=== PATIENT | female | born 1930 | race Caucasian/White ===

== ENCOUNTER 2016-11-17 10:39 | Inpatient (IN) | payer MEDICARE, OTHER ==
--- NOTE | 2016-11-17 11:06 | ED.PDOC ---
History of Present Illness - General Chief Complaint: Respiratory Problem Stated Complaint: Increased difficulty breathing x 4 days Time Seen by Provider: 11/17/16 11:02 Source: patient, RN notes reviewed, family Exam Limitations: no limitations - History of Present Illness Initial Comments: She stated that she has history of copd using hand held nebulizer and MDI at home and 4 days ago has worsening sob and bilateral leg swelling denies chest pain. Timing/Duration: other - 4 days ago Severity: moderate Improving Factors: nothing Worsening Factors: nothing Associated Symptoms: denies symptoms Allergies/Adverse Reactions: Allergies Allopurinol Allergy (Verified 10/02/15 09:16) Other Swelling, loses hair Colchicine Allergy (Verified 10/02/15 09:16) Other swelling, loses hair Gabapentin [From Neurontin] Allergy (Verified 10/02/15 09:16) Unknown Hydrochlorothiazide w/Triamterene [From Maxzide] Allergy (Verified 10/02/15 09: 16) Unknown Metoprolol [From Toprol XL] Allergy (Verified 10/02/15 09:16) Unknown Probenecid Allergy (Verified 10/02/15 09:16) Other swelling, loses hair Triamterene Allergy (Verified 10/02/15 09:16) Unknown Home Medications: Ambulatory Orders Cetirizine HCl 10 mg PO DAILY 10/02/15 Cholecalciferol [Vitamin D3] 1,000 unit PO DAILY 10/02/15 Cyclobenzaprine HCl 10 mg PO TID PRN 10/02/15 Febuxostat [Uloric] 40 mg PO DAILY 10/02/15 Furosemide [Lasix] 40 mg PO DAILY 10/02/15 [place]-3 Fatty Acids [[place] 3] 1 cap PO DAILY 10/02/15 Pregabalin [Lyrica] 100 mg PO BID 10/02/15 Sitagliptin Phosphate [Januvia] 25 mg PO DAILY 10/02/15 Tramadol HCl [Ultram] 50 mg PO BID PRN 10/02/15 amLODIPine BESYLATE [Norvasc] 10 mg PO DAILY 10/02/15 Ascorbic Acid [Vitamin C] 500 mg PO DAILY 11/17/16 Levothyroxine Sodium 50 mcg PO DAILY 11/17/16 Review of Systems - Review of Systems Constitutional: States: no symptoms reported EENTM: States: no symptoms reported Respiratory: States: see HPI, short of breath Cardiology: States: other - leg edema Gastrointestinal/Abdominal: States: no symptoms reported Genitourinary: States: no symptoms reported Musculoskeletal: States: joint pain Skin: States: no symptoms reported Neurological: States: no symptoms reported Endocrine: States: no symptoms reported Hematologic/Lymphatic: States: no symptoms reported Past Medical History (General) - Patient Medical History Hx Stroke: No Hx of COPD: Yes Hx Cardiac Disorders: - hx rheumatic fever Hx Congestive Heart Failure: Yes Hx Hypertension: Yes Hx Diabetes: Yes Hx MRSA: Yes - RA,Gout Surgical History: cholecystectomy, other - hysterectomy,bladder tuck,amputation distal phalnx (r) index finger - Vaccination History Hx Influenza Vaccination: Yes - 2014 Hx Pneumococcal Vaccination: Yes - Social History Hx Tobacco Use: No - Activities of Daily Living Patient Lives Alone: Yes Grooming Ability: Independent Eating (Feeding) Ability: Independent Toileting Ability: Independent Family Medical History - Family History Father Family History: No Known Living Status: Age at (years of age): 87 Cause of : old age Hx Family Asthma: Yes - daughte Hx Family Diabetes: Yes - brother,daughter Physical Exam - Physical Exam General Appearance: Alert, Comfortable, No apparent distress Eye Exam: bilateral normal Ears, Nose, Throat: hearing grossly normal, normal ENT inspection, normal pharynx Neck: non-tender, full range of motion, supple, normal inspection Respiratory: chest non-tender, no respiratory distress, no accessory muscle use , decreased breath sounds Cardiovascular/Chest: normal peripheral pulses, regular rate, rhythm, no gallop , no JVD, no murmur Peripheral Pulses: radial,right: 2+, radial,left: 2+ Gastrointestinal/Abdominal: normal bowel sounds, non tender, soft, no organomegaly Back Exam: normal inspection, no CVA tenderness, no vertebral tenderness Extremity: normal range of motion, non-tender, normal inspection, no pedal edema , pedal edema, swelling Neurologic: no motor/sensory deficits, alert, normal mood/affect, oriented x 3 Skin Exam: normal color, warm/dry, cyanosis Lymphatic: no adenopathy Progress - EKG/XRAY/CT EKG: Sinus, no ST T wave changes XRAY: chest - borderline cardiomegaly Departure - Departure Clinical Impression: COPD exacerbation Time of Disposition: 13:42 - D/W Livier CAMPOS-Hospitalist Disposition: Admit Patient Condition: Good Departure Forms: ED Discharge - Pt. Copy, Patient Portal Self Enrollment Home Medications: Ambulatory Orders Cetirizine HCl 10 mg PO DAILY 10/02/15 Cholecalciferol [Vitamin D3] 1,000 unit PO DAILY 10/02/15 Cyclobenzaprine HCl 10 mg PO TID PRN 10/02/15 Febuxostat [Uloric] 40 mg PO DAILY 10/02/15 Furosemide [Lasix] 40 mg PO DAILY 10/02/15 [place]ao-3 Fatty Acids [[place] 3] 1 cap PO DAILY 10/02/15 Pregabalin [Lyrica] 100 mg PO BID 10/02/15 Sitagliptin Phosphate [Januvia] 25 mg PO DAILY 10/02/15 Tramadol HCl [Ultram] 50 mg PO BID PRN 10/02/15 amLODIPine BESYLATE [Norvasc] 10 mg PO DAILY 10/02/15 Ascorbic Acid [Vitamin C] 500 mg PO DAILY 11/17/16 Levothyroxine Sodium 50 mcg PO DAILY 11/17/16
[2016-11-17] MEDS ORDERED: methylPREDNISolone SODIUM SUC 125 MG/2 ML VIAL IV ONE (11:16)
[2016-11-17] MEDS ORDERED: IPRATROPIUM/ALBUTEROL 3 ML VIAL NEB ONE (11:16)
[2016-11-17] MEDS ORDERED: BUMETANIDE 0.25 MG/ML VIAL IV SCH (11:30)
--- NOTE | 2016-11-17 12:01 | RAD ---
EXAM DESCRIPTION: XR CHEST 1 VIEW CLINICAL HISTORY: cough COMPARISON: October 02, 2015 FINDINGS: The heart is at the upper limits of normal size, stable. Mediastinal contours are otherwise unremarkable period subsegmental atelectasis or scarring is noted in the left lung base, but there is no airspace consolidation or pleural effusion period There is no pneumothorax or acute fracture. IMPRESSION: Stable borderline cardiomegaly, otherwise unremarkable exam. Electronically signed by: Carlos Mary DO 11/17/2016 12:00
--- NOTE | 2016-11-17 13:58 | HP ---
SUPERVISING PHYSICIAN: Bryan Madison M.D. CHIEF COMPLAINT: Coughing and weakness. HISTORY OF PRESENT ILLNESS: This is an 86 year-old female patient who lives alone between [facility]. Over the last 2 weeks, she has had increasing shortness of breath and coughing. She has a significant history of congestive heart failure, chronic obstructive pulmonary disease and diabetes. 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 She became so weak this morning that her breathing treatment was about 10 feet from her chair and she said it took her about 20 minutes to get to it because she had gotten so weak, and she was shaking plus she had such bad coughing bouts. She denied any chills or fever. She has also increased her breathing treatments over the last 2 weeks where she does them about every 2 to 3 hours. She also thought she had about a 20 pound weight gain. She called her daughter and her daughter brought her over to the Emergency Room. In the Emergency Room, her WBCs were 9.8, hemoglobin 10.6, hematocrit 32. She did have a left shift. Chloride 97, BUN 30 , creatinine 2.08. Troponin and creatinine kinase are negative, but her CK-MB is 5. TSH was 2.36. Urine showed a trace of leukocyte esterase. Chest x-ray showed stable borderline cardiomegaly with some subsegmental atelectasis and scarring noted in the left lung base. The patient received a diuretic, breathing treatments and Solu-Medrol in the Emergency Room. I was called for admission to the hospital. PAST MEDICAL HISTORY: 1. Hypothyroidism. 2. Chronic anemia. 3. Cervical disc degeneration. 4. Cervical spine stenosis. 5. Congestive heart failure with grade 1 diastolic dysfunction and an ejection fraction of 60% from her echocardiogram in June 2016. 6. Chronic obstructive pulmonary disease. 7. Chronic renal insufficiency stage III. 8. Gout. 9. Hypertension. 10. Hypertriglyceridemia. 11. Osteopenia. 12. Type 2 diabetes mellitus. PAST SURGICAL HISTORY: 1. Cholecystectomy. 2. Hysterectomy. 3. Right total knee arthroplasty. 4. Bladder suspension. 5. 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 CURRENT MEDICATIONS: Per the EMR and awaiting verification. ALLERGIES: ALLOPURINOL, COLCHICINE, METOPROLOL, PROBENECID, TRIAMTERENE, GABAPENTIN AND MAXZIDE. SHE DOES HAVE AN ADVERSE REACTION TO AZITHROMYCIN, IT HAS CAUSED A RASH IN THE PAST. SOCIAL HISTORY: She lives between [facility]. She is retired. She is . She has 3 children. She denies any ETOH, tobacco or illicit drug use. CODE STATUS: FULL CODE. REVIEW OF SYSTEMS: GENERAL: She complains of fatigue. Denies fever or chills. HEENT: Complains of an raw throat from coughing, otherwise denies sinus symptoms, ear pain or vision changes. RESPIRATORY: Complains of coughing, wheezing and shortness of breath. CARDIAC: Denies chest pain, palpitations or tachycardia. ABDOMEN: Denies nausea or vomiting, diarrhea, constipation or abdominal pain. GENITOURINARY: Denies dysuria, polyuria or hematuria. NEUROLOGIC: Complains of weakness and dizziness. Denies any seizures or headache. PHYSICAL EXAMINATION: VITAL SIGNS: She is afebrile. Pulse rate 84, blood pressure 132/65, respiratory rate 20, O2 sat when she was admitted to the floor was 87% on room air. After oxygen was administered at 2 liters nasal cannula, her saturations are now 92 to 93%. Weight 82.01 kilos. GENERAL: This is an 86 year-old female patient who is sitting up in her hospital bed. She is in moderate respiratory distress. HEENT: Normocephalic and atraumatic. Pupils are equal and reactive. Oropharynx is clear. NECK: Supple without mass. There is no discernible jugular venous distention. CHEST: Somewhat diminished at the bases. She does have a few scattered rhonchi and diffuse expiratory wheezing is noted. There is equal rise and fall of the chest with inspiration and expiration. CARDIOVASCULAR: Regular rate and rhythm. ABDOMEN: Soft, non-tender, nondistended. Bowel sounds are positive. EXTREMITIES: No cyanosis or clubbing, but she does have pitting edema in her lower extremities that extends up to the knee bilaterally. Pedal pulses are palpable at +1. NEUROLOGIC: She is awake, alert and oriented times three. LABORATORY AND FILMS: As per the history of present illness. ASSESSMENT: 1. Acute exacerbation of chronic obstructive pulmonary disease. 2. Questionable left lower lobe pneumonia. 3. Diabetes mellitus type 2. 4. Congestive heart failure with grade 1 diastolic dysfunction and an ejection fraction of 60% on her echocardiogram in June 2016. 5. Acute on chronic renal failure. 6. Hypertension. 7. Chronic gouty arthropathy. 8. Anemia. PLAN: We will admit the patient to the hospital. We will start Solu-Medrol. I will also start sliding scale insulin. Restart her home medications. We will do good pulmonary hygiene with breathing treatments and incentive spirometry. I started Rocephin and Levaquin. She was treated on 10/23/[address] [facility] on an outpatient basis. I am not sure what medications she received at that time. She thinks she received some oral steroids and an antibiotic, and I am not sure what medications were ordered. We will also start a PPI for ulcer prophylaxis as well as Lovenox for DVT prophylaxis. She received Bumex in the Emergency Room, so at this time I will hold off until tomorrow morning before I give her some more diuretics. I ordered lab and chest x-ray for in the morning. Continue to monitor the patient closely and followup as needed. Dr. Madison is the collaborating physician available for consultation. #[id number] DOE
[2016-11-17] MEDS ORDERED: SODIUM CHLORIDE 0.9% 1000ML 1,000 ML IVS PRN (14:48)
[2016-11-17] MEDS ORDERED: ALBUTEROL SULFATE 2.5 MG/3 ML VIAL NEB PRN (14:48)
[2016-11-17] MEDS ORDERED: GLUCAGON INJ 1 MG VIAL SUBCU PRN (14:53)
[2016-11-17] MEDS ORDERED: DEXTROSE 50% 25 GM/50 ML SYG IV PRN (14:53)
[2016-11-17] MEDS ORDERED: IV SET AND CAP CHANGE INJ INJ SCH ×2 (15:00→15:30)
[2016-11-17] MEDS ORDERED: SODIUM CHLORIDE 0.9% (FLUSH) 10 ML SYG IV PRN (15:06)
[2016-11-17] MEDS ORDERED: SODIUM CHLORIDE 0.9% 10 ML VIAL ONE (15:14)
[2016-11-17] MEDS: PANTOPRAZOLE SODIUM IV 40 MG VIAL IV SCH (15:21)
[2016-11-17] MEDS: ENOXAPARIN SODIUM 30 MG/0.3 ML SYG SUBCU SCH (15:21)
[2016-11-17] MEDS ORDERED: cefTRIAXone SODIUM 1 GM VIAL ONE (16:36)
[2016-11-17] MEDS ORDERED: SODIUM CHLORIDE 0.9% 250ML 250 ML ONE (16:36)
[2016-11-17] MEDS ORDERED: SODIUM CHL 0.9% 50ML MIN-BAG+ 50 ML IVPB ONE (16:36)
[2016-11-17] MEDS ORDERED: AZITHROMYCIN IV 500 MG VIAL IVPB ONE (16:36)
[2016-11-17] MEDS: IPRATROPIUM/ALBUTEROL 3 ML VIAL NEB SCH ×2 (16:41→23:06)
[2016-11-17] MEDS: INSULIN LISPRO 100 UNITS/ML PEN SUBCU SCH ×2 (16:43→21:12)
[2016-11-17] MEDS: cefTRIAXone SODIUM 1 GM in SODIUM CHL 0.9% 50ML MIN-BAG+ 50 ML IVPB SCH (16:47)
[2016-11-17] MEDS ORDERED: AZITHROMYCIN IV 500 MG in SODIUM CHLORIDE 0.9% 250ML 250 ML IVPB SCH (18:00)
--- NOTE | 2016-11-17 19:26 | PCM.CORE ---
Physician DVT/VTE - Prophylaxis Currently: Patient already on anticoagulation therapy - Nurse DVT Assessment & Total Each Risk Factor Represents 3 Points: Age over 75 years, Medical PT with Hx of [place], CHF, Severe infection/sepsis Each Risk Factor Represents 1 Point: Medical PT at Bed Rest Each Risk Factor is 1 Point: Varicose Veins/Edema Legs, Obesity (BMI >25), Serious Lung disease (pnemonia <1month, COPD, emphysema,etc) DVT Assessment Score: 10 - 5 or more Very High Risk Treatments: Early Ambulation *, Sequential Compression Device
[2016-11-17] MEDS ORDERED: methylPREDNISolone SODIUM SUC 125 MG/2 ML VIAL ONE (19:41)
[2016-11-17] MEDS ORDERED: SODIUM BICARBONATE VIAL 50 MEQ/50 ML VIAL ONE (20:33)
[2016-11-17] MEDS ORDERED: DEXTROSE 5% 1000ML 1,000 ML IVS ONE (20:33)
[2016-11-17] MEDS: SODIUM BICARBONATE 10MEQ/10ML 75 MEQ in DEXTROSE 5% 1000ML 1,000 ML IV PRN (20:48)
[2016-11-17] MEDS: SODIUM CHLORIDE 0.9% (FLUSH) 10 ML SYG IV PRN (20:54)
[2016-11-17] MEDS: methylPREDNISolone SODIUM SUC 125 MG/2 ML VIAL IV SCH (20:55)
[2016-11-17] MEDS: guaiFENesin ER TAB 600 MG TAB PO SCH (21:12)
[2016-11-18] MEDS ORDERED: HYDROcodone 5MG/APAP 325MG 1 EA TAB PO PRN (00:58)
[2016-11-18] MEDS ORDERED: ACETAMINOPHEN 325 MG TAB PO PRN (01:10)
[2016-11-18] MEDS: CYCLOBENZAPRINE HCL 10 MG TAB PO PRN ×3 (01:20→20:41)
[2016-11-18] MEDS ORDERED: FUROSEMIDE INJ 40 MG/4 ML VIAL ONE (03:05)
[2016-11-18] MEDS ORDERED: FUROSEMIDE INJ 40 MG/4 ML VIAL IV ONE (03:12)
[2016-11-18] MEDS: SODIUM CHLORIDE 0.9% (FLUSH) 10 ML SYG IV PRN ×3 (03:13→08:29)
[2016-11-18] MEDS: methylPREDNISolone SODIUM SUC 125 MG/2 ML VIAL IV SCH ×3 (03:14→14:50)
[2016-11-18] MEDS: SODIUM BICARBONATE 10MEQ/10ML 75 MEQ in DEXTROSE 5% 1000ML 1,000 ML IV PRN (03:20)
[2016-11-18] MEDS ORDERED: SODIUM CHL 0.9% 50ML MIN-BAG+ 50 ML IVPB ONE ×2 (05:13→07:07)
[2016-11-18] MEDS ORDERED: levoFLOXacin 250MG IV 0 ML IVPB ONE (05:14)
[2016-11-18] MEDS ORDERED: cefTRIAXone SODIUM 1 GM VIAL ONE ×2 (05:14→07:07)
[2016-11-18] MEDS: cefTRIAXone SODIUM 1 GM in SODIUM CHL 0.9% 50ML MIN-BAG+ 50 ML IVPB SCH ×2 (05:22→16:40)
[2016-11-18] MEDS ORDERED: levoFLOXacin 250MG IV 250 MG in PREMIX BAG 1 BAG IVPB SCH (06:00)
[2016-11-18] MEDS: SODIUM CHLORIDE 0.9% 10 ML VIAL IV PRN (06:29)
[2016-11-18] MEDS: PANTOPRAZOLE SODIUM IV 40 MG VIAL IV SCH (06:29)
--- NOTE | 2016-11-18 06:40 | RAD ---
EXAM: Two view chest. INDICATION: Chest pain. COMPARISON: Chest x-ray: 11/17/2016. FINDINGS: Cardiac silhouette: Mildly enlarged Yulissa: Unremarkable. Lobar consolidation: None.Pleural effusion: Small rightPneumothorax: None.Other: None. Bones: Unremarkable. Other: None. IMPRESSION: Small right pleural effusion Electronically signed by: Harvey Weber MD 11/18/2016 6:39 AM TAG MARKER
[2016-11-18] MEDS ORDERED: levoFLOXacin 250MG IV 50 ML IVPB ONE (07:07)
[2016-11-18] MEDS ORDERED: SODIUM BICARBONATE 10MEQ/10ML 75 MEQ in DEXTROSE 5% 1000ML 1,000 ML IV PRN (07:08)
[2016-11-18] MEDS: IPRATROPIUM/ALBUTEROL 3 ML VIAL NEB SCH ×4 (07:25→20:30)
[2016-11-18] MEDS: INSULIN LISPRO 100 UNITS/ML PEN SUBCU SCH ×4 (07:26→21:18)
[2016-11-18] MEDS ORDERED: SODIUM BICARBONATE VIAL 75 MEQ in DEXTROSE 5% 1000ML 1,000 ML IV PRN (07:49)
[2016-11-18] MEDS: guaiFENesin ER TAB 600 MG TAB PO SCH ×2 (08:26→20:41)
[2016-11-18] MEDS ORDERED: methylPREDNISolone SODIUM SUC 125 MG/2 ML VIAL IV ONE (10:16)
[2016-11-18] MEDS ORDERED: traMADol HCL 50 MG TAB PO PRN (11:31)
[2016-11-18] MEDS ORDERED: SITAGLIPTIN PHOSPHATE 25 MG PO SCH (11:45)
[2016-11-18] MEDS ORDERED: SODIUM BICARBONATE IV PRN (11:46)
[2016-11-18] MEDS ORDERED: DEX 5% IV PRN (11:46)
[2016-11-18] MEDS ORDERED: NACL 0.9% IV PRN (11:46)
[2016-11-18] MEDS ORDERED: DEXTROSE 5% 1000ML 1,000 ML IVS ONE (11:51)
[2016-11-18] MEDS ORDERED: SITagliptin 50 MG TAB PO ONE (11:51)
[2016-11-18] MEDS ORDERED: SODIUM BICARBONATE VIAL 50 MEQ/50 ML VIAL ONE ×2 (11:52→12:10)
[2016-11-18] MEDS ORDERED: DEX 5% W/NACL 0.9% 1000ML 1,000 ML IVS ONE (12:10)
--- NOTE | 2016-11-18 12:11 | PN ---
DATE: 11/18/16 SUPERVISING PHYSICIAN: Bryan Madison M.D. SUBJECTIVE: The patient is sitting up in her bed. She has been using the BiPAP machine but has it off at this time. She continues to have shortness of breath and is only able to speak in phrases without getting short of breath. She denies any chest pain or abdominal pain, but again continues to complain of shortness of breath and weakness. OBJECTIVE: She is afebrile, heart rate 87, blood pressure 113/64, respiratory rate 20, O2 sat 92%. RESPIRATORY: Bilateral expiratory wheezes throughout, somewhat diminished at the bases. CARDIAC: Regular rate and rhythm. ABDOMEN: Soft, nondistended, non-tender. Bowel sounds are positive. EXTREMITIES: She has edema to the bilateral lower extremities, although it has improved since yesterday, +2 bilaterally. NEUROLOGIC: She is awake, alert and oriented times three. LABORATORY: WBC 11.7, hemoglobin 9.8, hematocrit 29.7, platelets 126. She does have a left shift. Sodium 133, potassium 4.2, chloride 95, BUN 42, creatinine 2.62, glucose 281, magnesium 2. Preliminary blood cultures and urine cultures showed no growth after 24 hours. Chest x-ray shows a small right pleural effusion. All other labs and films have been reviewed via the EMR. ASSESSMENT: 1. Acute exacerbation of chronic obstructive pulmonary disease. 2. Left lower lobe pneumonia. 3. Diabetes mellitus type 2. 4. Congestive heart failure with grade 1 diastolic dysfunction and an ejection fraction of 60% on her echocardiogram in June 2016. 5. Acute on chronic renal failure that has slightly worsened. 6. Hypertension. 7. Chronic gouty arthropathy. 8. Anemia, her hemoglobin having dropped almost 1 gram overnight. PLAN: Her sodium is somewhat low but I need to continue to give her some D5W with bicarbonate, so I will restrict her fluids. I will recheck her labs in the morning. I have given her 1 additional dose of IV Solu-Medrol. I have not continued her steroids due to her diabetes. Will do a chest x-ray in the morning. Will continue the BiPAP and her Rocephin and Levaquin. She has received Bumex in the E. R. last night. I have given her 1 more dose of Furosemide today. Her home medications have been restarted, except I have not restarted her Furosemide yet. That can be addressed tomorrow. I spoke with Dr. Hartman and he agrees with giving the Dextrose with bicarbonate for now. It should probably be discontinued tomorrow depending on her renal function. Dr. Madison is the collaborating physician and available for consultation. #[id number] [facility]
[2016-11-18] MEDS ORDERED: CYCLOBENZAPRINE HCL 10 MG TAB PO PRN (12:30)
[2016-11-18] MEDS: ENOXAPARIN SODIUM 30 MG/0.3 ML SYG SUBCU SCH (14:49)
[2016-11-18] MEDS ORDERED: PREGABALIN 100 MG CAP ONE (19:30)
[2016-11-18] MEDS ORDERED: PREGABALIN 100 MG CAP PO SCH (21:00)
[2016-11-18 23:54] VITALS: BP 135/60; TEMP 97.6
[2016-11-19] MEDS: SODIUM CHLORIDE 0.9% 10 ML VIAL IV PRN (00:23)
[2016-11-19] MEDS: SODIUM CHLORIDE 0.9% (FLUSH) 10 ML SYG IV PRN (00:23)
[2016-11-19] MEDS ORDERED: SUCCINYLCHOLINE CHLORIDE 200 MG/10 ML VIAL ONE (01:46)
[2016-11-19] MEDS ORDERED: WATER FOR INJECTION, STERILE 100 ML VIAL INJ ONE (02:00)
[2016-11-19] MEDS ORDERED: SODIUM CHLORIDE 0.9% 1000ML 1,000 ML IVS ONE (02:00)
[2016-11-19] MEDS ORDERED: VECURONIUM BROMIDE 10 MG VIAL IV ONE (02:00)
[2016-11-19] MEDS ORDERED: LIDOCAINE 2 % GEL 5 ML TUBE TOP ONE (02:00)
[2016-11-19] MEDS ORDERED: MIDAZOLAM INJ 5 MG/5 ML VIAL ONE (02:01)
[2016-11-19 03:14] VITALS: O2SAT 96
[2016-11-19] MEDS ORDERED: LEVOTHYROXINE SODIUM 0.025 MG TAB PO SCH (06:30)
--- NOTE | 2016-11-19 08:36 | DS ---
SUPERVISING PHYSICIAN: Janet Madison MD DISCHARGE DIAGNOSIS: 1. Acute respiratory failure. 2. Acute exacerbation of chronic obstructive pulmonary disease. 3. Left lower lobe pneumonia. 4. Diabetes mellitus, type 2. 5. Congestive heart failure with grade 1 diastolic dysfunction and an ejection fraction of 60% on her echocardiogram in June 2016.6 6. Acute on chronic renal failure. 7. Hypertension. 8. Chronic gouty arthropathy. 9. Anemia. HISTORY OF PRESENT ILLNESS: This is an 86-year-old female patient who lives around [place] and from the date of admission for the prior 2 weeks, she has had increasing shortness of breath and coughing. She has a significant history of congestive heart failure and chronic obstructive pulmonary disease. She was seen at [facility] around 10/23/16 for this same things and was given antibiotics and steroids at that time. She got somewhat better and then over the last 2 weeks has progressively worsened to the point that on the day of admission to the hospital, she was so short of breath and weak that it took her about 20 minutes to get to her breathing machine which was just about 10 feet from her. She finally got a breathing treatment and called her daughter and her daughter brought her over to the Emergency Room. In the Emergency Room, her WBCs were 9.8, hemoglobin 10.6, hematocrit 32. She did have a left shift. BUN 30, creatinine 2.08. Troponin and creatinine kinase are negative, but her CK-MB was 5. TSH was 2.36. Urine showed a trace of leukocyte esterase. Her oxygen saturations in the Emergency Room were 87% and after plain oxygen, the came up to the low 90s. I was called for admission to the hospital. HOSPITAL COURSE: The patient was given Levaquin and Rocephin. She was also on steroids and sliding scale insulin. Her home medications were re-started. She continued to have complaints of shortness of breath and was eventually placed on BiPAP. While on BiPAP, her oxygen saturations remained in the mid to upper 90s, but she would take her oxygen mask off quite frequently. On the day prior to discharge, on the evening of 11/18/16, she became quite disoriented and an ABG was done. Her PCO2 was 40, PO2 74, bicarb 24.2, pH 7.4 with O2 saturation 95%. She was given a small amount of Ativan. She tolerated the BIPAP better that evening. Early this morning, nursing was assisting her with her oxygen mask. She was trying to take it off and she had become agitated again. She was actually responding to the nursing staff and answering questions although she was somewhat confused and then the patient stopped breathing. A Code Blue was called and she was subsequently intubated and I spoke with Dr. Burton with [facility] in [place] and she agreed to accept the patient. [facility] was called to transport the patient. Acceptance was given by Callie Wilks RN, house fellow, [place]. When the patient was discharged, her pulse rate was in the 90s. Her blood pressure was 160/51 and saturations was 100%. Ambu bag was being used to ventilate the patient. The patient was transferred in stable condition to [facility]. Dr. Madison is the collaborating physician and available for consultation. HOME MEDICATIONS: 1. Lyrica. 2. Vitamin D. 3. Cetirizine. 4. Tramadol. 5. Uloric. 6. Amlodipine. 7. Januvia. 8. Furosemide. 9. Cyclobenzaprine. 10. [place] 3. 11. Levothyroxine. 12. Vitamin C. #[id number] [facility]
[2016-11-19] MEDS ORDERED: SITagliptin 50 MG TAB PO SCH (09:00)
[2016-11-19] MEDS ORDERED: NON-FORMULARY MEDICATION 1 EA MIS (Febuxostat [Uloric] 40 MG) PO SCH (09:00)
[2016-11-19] MEDS ORDERED: amLODIPine BESYLATE 5 MG TAB PO SCH (09:00)
[2016-11-19] MEDS ORDERED: CETIRIZINE HCL 10 MG TAB PO SCH (09:00)
--- NOTE | 2016-12-03 00:05 | RAD ---
EXAM: Two view chest. INDICATION: Chest pain. COMPARISON: Chest x-ray: 11/17/2016. FINDINGS: Cardiac silhouette: Mildly enlarged Yulissa: Unremarkable. Lobar consolidation: None.Pleural effusion: Small rightPneumothorax: None.Other: None. Bones: Unremarkable. Other: None. IMPRESSION: Small right pleural effusion Electronically signed by: Harvey Weber MD 11/18/2016 6:39 AM [employer]
--- NOTE | 2016-12-03 00:08 | RAD ---
EXAM: Single view chest. INDICATION: Chest pain. COMPARISON: Chest x-ray: 11/18/2016. FINDINGS: The endotracheal tube terminates 2 cm above the alberto. The nasogastric tube is in satisfactory position. There is worsening pulmonary vascular congestion with diffuse interstitial opacities. The heart size is stable. There is no pneumothorax or pleural effusion bones are unchanged. IMPRESSION: Satisfactory positioning of the endotracheal and nasogastric tubes.Worsening pulmonary vascular congestion with worsening diffuse interstitial opacities, likely representing edema Electronically signed by: Harvey Weber MD 11/19/2016 2:39 AM [employer]EL [employer]
== END 2016-11-19 03:35 | disposition short-term general hospital (02) | DRG 190 ==
LOC: ER 10:39 → MS 13:55 → OBSVTOIN 13:55
PROVIDERS: ADMIT Nurse Practitioner Acute Care; ATTEND Nurse Practitioner Acute Care
PROC: 0BH17EZ Insertion of Endotracheal Airway into Trachea, Via Natural or Artificial Opening (ICD-10-PCS; principal; 2016-11-19)
DX: J44.0 Chronic obstructive pulmonary disease with (acute) lower respiratory infection (principal); J18.9 Pneumonia, unspecified organism; J96.00 Acute respiratory failure, unspecified whether with hypoxia or hypercapnia; I13.0 Hypertensive heart and chronic kidney disease with heart failure and stage 1 through stage 4 chronic kidney disease, or unspecified chronic kidney disease; N17.9 Acute kidney failure, unspecified; I50.32 Chronic diastolic (congestive) heart failure; J44.1 Chronic obstructive pulmonary disease with (acute) exacerbation; M1A.9XX0 Chronic gout, unspecified, without tophus (tophi); D64.9 Anemia, unspecified; E03.9 Hypothyroidism, unspecified; N18.3 Chronic kidney disease, stage 3 (moderate); E78.1 Pure hyperglyceridemia; M85.80 Other specified disorders of bone density and structure, unspecified site; E11.22 Type 2 diabetes mellitus with diabetic chronic kidney disease; M50.30 Other cervical disc degeneration, unspecified cervical region; Z96.651 Presence of right artificial knee joint; Z88.8 Allergy status to other drugs, medicaments and biological substances; Z88.1 Allergy status to other antibiotic agents; Z79.899 Other long term (current) drug therapy